=== PATIENT | male | born 1980 | race African-American/Black ===

== ENCOUNTER 2022-11-12 13:22 | Emergency (ER) | payer MEDICAID, SELFPAY ==
[~2022-11-12] VITALS: Ht 175.3 cm; Wt 95.5 kg
[2022-11-12 13:41] LABS: COVID AG,FIA SOURCE NASAL SWAB
[2022-11-12 15:28] VITALS: BP 155/99
== END 2022-11-12 17:21 | disposition home or self-care (01) ==
LOC: EMS 13:28
DX: R05.9 Cough, unspecified (principal); F17.210 Nicotine dependence, cigarettes, uncomplicated; Z20.822 Contact with and (suspected) exposure to COVID-19
CPT/HCPCS: 99283